=== PATIENT | male | born 1945 | race Caucasian/White ===

== ENCOUNTER 2022-09-02 08:55 | Outpatient (RCR) | payer MEDICARE, OTHER, SELFPAY | END 2022-09-10 16:00 | disposition home or self-care (01) | LOC: HO.WCC 08:55 | PROVIDERS: PCP Internal Medicine; Referring Provider Podiatrist; Visit Provider Physician Assistant | DX: Z09 Encounter for follow-up examination after completed treatment for conditions other than malignant neoplasm (principal); E11.40 Type 2 diabetes mellitus with diabetic neuropathy, unspecified; I25.10 Atherosclerotic heart disease of native coronary artery without angina pectoris; I10 Essential (primary) hypertension; I50.9 Heart failure, unspecified; Z79.4 Long term (current) use of insulin; Z79.01 Long term (current) use of anticoagulants; Z95.2 Presence of prosthetic heart valve; Z86.718 Personal history of other venous thrombosis and embolism; Z86.31 Personal history of diabetic foot ulcer | CPT/HCPCS: 11042; 97597; 99212 ==